=== PATIENT | female | born 1985 | race African-American/Black ===

== ENCOUNTER 2020-09-10 21:05 | Emergency (ER) | payer SELFPAY ==
[~2020-09-10] VITALS: Ht 177.8 cm; Wt 100.4 kg
[2020-09-10 21:53] VITALS: BP 123/60
[2020-09-10 22:09] LABS: URINE BLOOD DIPSTICK NEGATIVE (NEGATIVE); URINE COLOR YELLOW; URINE GLUCOSE - DIPSTICK NEGATIVE (NEGATIVE); URINE KETONE NEGATIVE (NEGATIVE); URINE LEUK ESTERASE NEGATIVE (NEGATIVE); URINE NITRITE - DIPSTICK NEGATIVE (Negative); URINE PH 6.5 (4.5-8.0); URINE PROTEIN - DIPSTICK >=300 mg/dL (NEG-TRACE); URINE SPECIFIC GRAVITY >=1.030
[2020-09-10 22:10] LABS: URINE BILIRUBIN - DIPSTICK NEGATIVE (NEGATIVE)
[2020-09-10 22:16] LABS: URINE SQUAMOUS EPITHELIAL CELL MANY EPI/hpf (0-FEW)
[2020-09-10] MEDS ORDERED: CLARITIN10 M1 PO (22:58)
[2020-09-10] MEDS ORDERED: AMOXICILLIN500 MG PO (22:58)
== END 2020-09-10 23:19 | disposition home or self-care (01) | DRG 153 ==
LOC: ED 21:05
PROVIDERS: Emergency Medicine
DX: J02.9 Acute pharyngitis, unspecified (principal); Z20.822 Contact with and (suspected) exposure to COVID-19

== ENCOUNTER 2021-04-18 18:30 | Emergency (ER) | payer SELFPAY ==
[~2021-04-18] VITALS: Ht 177.8 cm; Wt 100.0 kg
[~2021-04-18 18:30] MED LIST: AMOXICILLIN500 MG PO; CLARITIN10 M1 PO
[2021-04-18] MEDS ORDERED: PENICILLN VK500 MG PO (18:55)
[2021-04-18] MEDS ORDERED: TRAMADOL HYDROC50 M1 PO (18:55)
[2021-04-18 19:00] VITALS: BP 140/82
== END 2021-04-18 19:00 | disposition home or self-care (01) | DRG 159 ==
LOC: ED 18:30
DX: K02.9 Dental caries, unspecified (principal); F17.210 Nicotine dependence, cigarettes, uncomplicated

== ENCOUNTER 2021-11-13 15:04 | Emergency (ER) | payer SELFPAY ==
[~2021-11-13] VITALS: Ht 177.8 cm; Wt 109.0 kg
[~2021-11-13 15:04] MED LIST changes: +PENICILLN VK500 MG PO; +TRAMADOL HYDROC50 M1 PO
[2021-11-13 15:36] VITALS: BP 130/75
[2021-11-13 15:45] VITALS: BP 115/75
[2021-11-13 16:01] VITALS: BP 114/69
[2021-11-13] MEDS ORDERED: MOTRIN800 MG PO (16:11)
[2021-11-13] MEDS ORDERED: ULTRAM50 M1 PO (16:11)
[2021-11-13 17:12] VITALS: BP 114/69
== END 2021-11-13 17:12 | disposition home or self-care (01) | DRG 563 ==
LOC: ED 15:04
DX: S93.602A Unspecified sprain of left foot, initial encounter (principal); F17.200 Nicotine dependence, unspecified, uncomplicated; X50.0XXA Overexertion from strenuous movement or load, initial encounter; Y92.009 Unspecified place in unspecified non-institutional (private) residence as the place of occurrence of the external cause

== ENCOUNTER 2022-08-05 23:20 | Emergency (ER) | payer MEDICAID ==
[~2022-08-05] VITALS: Ht 177.8 cm; Wt 104.0 kg
[~2022-08-05 23:20] MED LIST changes: +MOTRIN800 MG PO; +ULTRAM50 M1 PO
[2022-08-06] MEDS ORDERED: VALTREX1 GM PO (00:23)
[2022-08-06 00:40] VITALS: BP 122/72
== END 2022-08-06 01:20 | disposition home or self-care (01) ==
LOC: ED 23:20
DX: B02.9 Zoster without complications (principal); F17.200 Nicotine dependence, unspecified, uncomplicated

== ENCOUNTER 2022-11-28 14:33 | Emergency (ER) | payer MEDICAID ==
[~2022-11-28] VITALS: Ht 175.3 cm; Wt 104.3 kg
[~2022-11-28 14:33] MED LIST changes: +VALTREX1 GM PO
[2022-11-28] MEDS ORDERED: FIORICET PO (17:28)
[2022-11-28 17:29] VITALS: BP 104/64
== END 2022-11-28 17:32 | disposition left against medical advice (07) ==
LOC: ED 14:33
DX: R51.9 Headache, unspecified (principal); F17.200 Nicotine dependence, unspecified, uncomplicated; Z53.29 Procedure and treatment not carried out because of patient's decision for other reasons

== ENCOUNTER 2022-11-30 09:14 | Emergency (ER) | payer MEDICAID ==
[~2022-11-30] VITALS: Ht 175.3 cm; Wt 104.3 kg
[2022-11-30] VITALS (8 sets, daily range): BP systolic 105–123; BP diastolic 64–106
[~2022-11-30 09:14] MED LIST changes: +FIORICET PO
[2022-11-30] MEDS ORDERED: IMITREX50 MG PO (14:03)
== END 2022-11-30 14:21 | disposition home or self-care (01) ==
LOC: ED 09:14
DX: R51.9 Headache, unspecified (principal)

== ENCOUNTER 2023-07-25 11:23 | Emergency (ER) | payer MEDICAID ==
[~2023-07-25] VITALS: Ht 175.3 cm; Wt 104.0 kg
[2023-07-25] VITALS (14 sets, daily range): BP systolic 101–119; BP diastolic 56–77
[~2023-07-25 11:23] MED LIST changes: +IMITREX50 MG PO
[2023-07-25 12:30] LABS: BASO% 0.7 % (0-3); EOS% 4.5 % (0-8); HEMATOCRIT 42.8 % (37.0-47.0); IMMATURE GRANULOCYTES 0.1 % (0.0-5.0); LYMPH% 53.4 % (15-41); MEAN CORPUSCULAR HGB 30.2 pG CALC (26.0-32.0); MEAN CORPUSCULAR HGB CONC 32.7 g/dL CAL (32.0-36.0); MONO% 7.5 % (2-13); NEUT# 2.58 thou/uL (2.00-7.15); NEUT% 33.8 % (42-76); RED BLOOD COUNT 4.63 mill/uL (4.20-5.60); RED CELL DISTRI WIDTH 13.6 % (11.5-15.5)
[2023-07-25 12:32] LABS: MEAN CELL VOLUME 92.4 fL CALC (80.0-100.0)
[2023-07-25 12:43] LABS: ALBUMIN 3.8 g/dL (3.2-5.0); ALKALINE PHOSPHATASE 85 u/l (38-126); ANION GAP 11 (6-22 (CALC)); BILIRUBIN, TOTAL 0.5 mg/dL (0.02-1.3); BUN 8 mg/dL (7-17); BUN/CREATININE RATIO 9 (12-20 (CALC)); CARBON DIOXIDE 24 mmol/l (22-30); CHLORIDE 108 mmol/l (95-108); GFR FOR AFR.AMER. > 60 ML/MIN (>=60 (CALC)); GFR OTHER RACES > 60 ML/MIN (>=60 (CALC)); LIPASE 92 u/l (23-300); POTASSIUM 3.9 mmol/l (3.5-5.1); SGOT/AST 39 u/l (14-36); SODIUM 138 mmol/l (137-146); TOTAL PROTEIN 7.1 g/dL (6.3-8.2)
[2023-07-25] MEDS ORDERED: PROTONIX40 M2 PO (14:36)
== END 2023-07-25 15:00 | disposition home or self-care (01) ==
LOC: ED 11:23
PROVIDERS: Family Medicine
DX: K29.70 Gastritis, unspecified, without bleeding (principal); Z72.0 Tobacco use

== ENCOUNTER 2023-09-12 18:59 | Emergency (ER) | payer MEDICAID ==
[~2023-09-12] VITALS: Ht 175.3 cm; Wt 109.0 kg
[~2023-09-12 18:59] MED LIST changes: +PROTONIX40 M2 PO
[2023-09-12 20:11] LABS: URINE BLOOD DIPSTICK Negative (NEGATIVE); URINE GLUCOSE - DIPSTICK Negative (NEGATIVE); URINE KETONE 40 mg/dL (NEGATIVE); URINE LEUK ESTERASE Negative (NEGATIVE); URINE NITRITE - DIPSTICK Negative (Negative); URINE PROTEIN - DIPSTICK 100 mg/dL (NEG-TRACE); URINE SPECIFIC GRAVITY 1.025
[2023-09-12 20:17] LABS: URINE COLOR Yellow; URINE RBC 0-2 RBC/hpf (0-5); URINE SQUAMOUS EPITHELIAL CELL FEW EPI/hpf (0-FEW)
[2023-09-12] MEDS ORDERED: OSELTAMIVIR PHOSPHATE 75 MG/TAB CAP PO ONE (20:20)
[2023-09-12] MEDS ORDERED: TAM75CAP PO (20:21)
[2023-09-12 20:37] VITALS: BP 136/75
== END 2023-09-12 20:38 | disposition home or self-care (01) ==
LOC: ED 18:59
PROVIDERS: Nurse Practitioner
DX: J10.1 Influenza due to other identified influenza virus with other respiratory manifestations (principal); F17.210 Nicotine dependence, cigarettes, uncomplicated; Z20.822 Contact with and (suspected) exposure to COVID-19

== ENCOUNTER 2024-02-20 20:30 | Emergency (ER) | payer MEDICAID ==
[~2024-02-20] VITALS: Ht 177.8 cm; Wt 102.0 kg
[~2024-02-20 20:30] MED LIST changes: +TAM75CAP PO
[2024-02-20 20:42] VITALS: BP 128/65
[2024-02-20] MEDS ORDERED: SODIUM CHLORIDE 0.9% 1,000 ML IV ONE (20:55)
[2024-02-20] MEDS ORDERED: LORazepam 2 MG/ML IV ONE (20:55)
[2024-02-20] MEDS ORDERED: ASPIRIN 81 MG/TAB PO ONE (20:55)
[2024-02-20 21:16] LABS: BASO% 0.8 % (0-3); EOS% 5.1 % (0-8); HEMATOCRIT 43.1 % (37.0-47.0); HEMOGLOBIN 14.7 g/dl (12.0-16.0); IMMATURE GRANULOCYTES 0.2 % (0.0-5.0); LYMPH% 55.1 % (15-41); MEAN CELL VOLUME 88.9 fL CALC (80.0-100.0); MEAN CORPUSCULAR HGB 30.3 pG CALC (26.0-32.0); MEAN CORPUSCULAR HGB CONC 34.1 g/dL CAL (32.0-36.0); MONO% 7.3 % (2-13); NEUT# 1.99 thou/uL (2.00-7.15); NEUT% 31.5 % (42-76); RED BLOOD COUNT 4.85 mill/uL (4.20-5.60)
[2024-02-20 21:41] LABS: ALBUMIN 4.3 g/dL (3.2-5.0); ALKALINE PHOSPHATASE 84 u/l (38-126); ANION GAP 9 (6-22 (CALC)); BILIRUBIN, TOTAL 0.5 mg/dL (0.02-1.3); BUN 10 mg/dL (7-17); BUN/CREATININE RATIO 9 (12-20 (CALC)); CARBON DIOXIDE 22 mmol/l (22-30); CHLORIDE 112 mmol/l (95-108); CREATININE 1.1 mg/dL (0.5-1.0); ESTIMATED GFR 66 ML/MIN (>=90 (CALC)); POTASSIUM 3.6 mmol/l (3.5-5.1); SGOT/AST 38 u/l (14-36); SODIUM 140 mmol/l (137-146); TOTAL PROTEIN 8.3 g/dL (6.3-8.2)
[2024-02-20 22:12] LABS: TSH, 3RD GENERATION 1.01 uIU/mL (0.47 - 4.68)
== END 2024-02-20 22:20 | disposition left against medical advice (07) ==
LOC: ED 20:30
PROVIDERS: Family Medicine
DX: F41.9 Anxiety disorder, unspecified (principal); Z53.29 Procedure and treatment not carried out because of patient's decision for other reasons; Z72.0 Tobacco use
CPT/HCPCS: J2060

== ENCOUNTER 2024-05-20 16:02 | Emergency (ER) | payer MEDICAID ==
[~2024-05-20] VITALS: Ht 177.8 cm; Wt 104.3 kg
[2024-05-20 16:08] VITALS: BP 119/67
[2024-05-20] MEDS ORDERED: TETRACAINE HCL 0.5 %/4 ML SOL OS ONE (16:10)
[2024-05-20] MEDS ORDERED: FLUORESCEIN SODIUM 1 MG EA OD ONE (16:10)
[2024-05-20 16:16] VITALS: BP 121/69
[2024-05-20] MEDS ORDERED: OFLOXACIN0.3 % OS (16:35)
[2024-05-20 16:50] VITALS: BP 121/69
== END 2024-05-20 16:51 | disposition home or self-care (01) ==
LOC: ED 16:02
DX: H10.9 Unspecified conjunctivitis (principal); Z72.0 Tobacco use

== ENCOUNTER 2024-07-18 00:22 | Emergency (ER) | payer MEDICAID ==
[~2024-07-18] VITALS: Ht 177.8 cm; Wt 99.8 kg
[~2024-07-18 00:22] MED LIST changes: +OFLOXACIN0.3 % OS
[2024-07-18] MEDS ORDERED: Acetaminophen 300 MG/Codeine 30 MG/COMBO PO ONE (00:45)
[2024-07-18] MEDS ORDERED: AMOXICILLIN TRIHYDRATE 500 MG/CAP PO ONE (00:45)
[2024-07-18] MEDS ORDERED: DICLOFENAC SODIUM 75 MG/TAB PO ONE (00:45)
[2024-07-18] MEDS ORDERED: AMOXICILLIN500 MG PO (00:48)
[2024-07-18 00:59] VITALS: BP 138/81
== END 2024-07-18 01:00 | disposition home or self-care (01) ==
LOC: ED 00:22
DX: K02.9 Dental caries, unspecified (principal)